=== PATIENT | male | born 1995 | race Caucasian/White ===

== ENCOUNTER 2021-03-14 21:55 | Emergency (ER) | payer SELFPAY ==
[~2021-03-14] VITALS: Ht 178 cm; Wt 108.9 kg
[~2021-03-14 21:55] MED LIST: OXYC1TAB87 PO
[2021-03-14 22:09] VITALS: BP 140/97
--- NOTE | 2021-03-14 22:49 | ED General ---
General Chief Complaint: General Problems/Pain Stated Complaint: BODY ACHES/DIARRHEA Nursing Triage Note: PT AMB TO RM 8 W REPORTS OF DIARRHEA AND BODY ACHES SX YESTERDAY. PT A&OX4. Source of Information: Patient Exam Limitations: No Limitations History of Present Illness Date Seen by Provider: Mar 14, 2021 Time Seen by Provider: 22:14 Initial Comments This 26-year-old young man presents to the emergency room with primary complaint of watery diarrhea yesterday and today. Yesterday he had some aches and some abdominal cramping. He denies any pain today. No fever, hematochezia, or respiratory symptoms. He denies any exposure to possible infectious sources such as dirty water, contaminated food, diapers, reptiles, or agricultural animals. He has not taken any medications for the diarrhea yet. He has been pushing clear liquids and thinks he has stayed well-hydrated. Allergies and Home Medications Allergies Uncoded Allergies: GRAPE JUICE 100% (Allergy, Mild, 08/01/15) Patient Home Medication List Home Medication List Reviewed: Yes Oxycodone HCl/Acetaminophen (Percocet 5-325 mg Tablet) 1 Each Tablet, 1-2 EACH PO Q6H PRN for PAIN Prescribed by: RU VALENCIA on 08/01/15 7903 Review of Systems Review of Systems Constitutional: no symptoms reported EENTM: no symptoms reported Respiratory: no symptoms reported Cardiovascular: no symptoms reported Gastrointestinal: see HPI Genitourinary: no symptoms reported Musculoskeletal: see HPI Skin: no symptoms reported Psychiatric/Neurological: No Symptoms Reported Hematologic/Lymphatic: No Symptoms Reported Immunological/Allergic: no symptoms reported Past Rgoctws-Ibzwgs-Xivjjq Hx Patient Social History Tobacco Use?: No Use of E-Cig and/or Vaping dev: No Substance use?: No Alcohol Use?: No Immunizations Up To Date Influenza Vaccine Up-to-Date: No; Not Current First/Initial COVID19 Vaccinat: NONE Second COVID19 Vaccination Maxx: NONE Third COVID19 Vaccination Date: NONE 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 oz. 79.770160lk; 34.00 BMI Method: General Appearance: No Apparent Distress, WD/WN HEENT: PERRL/EOMI, Normal ENT Inspection, Pharynx Normal, Other (Mucous membranes moist) Neck: Normal Inspection Respiratory: Lungs Clear, Normal Breath Sounds, No Accessory Muscle Use Cardiovascular: Regular Rate, Rhythm, No Edema, No Murmur Gastrointestinal: Normal Bowel Sounds, Non Tender, Soft; No Distended Extremity: Normal Inspection, No Pedal Edema Neurologic/Psychiatric: Alert, Oriented x3, No Motor/Sensory Deficits, Normal Mood/Affect Skin: Normal Color, Warm/Dry Progress/Results/Core Measures Suspected Sepsis SIRS Temperature: Pulse: 93 Respiratory Rate: 20 Blood Pressure 140 /97 Mean: 111 Results/Orders Lab Results Laboratory Tests Test 03/14/21 22:12 Range/Units Influenza Type A (RT-PCR) Not Detected Not Detecte Influenza Type B (RT-PCR) Not Detected Not Detecte SARS-CoV-2 RNA (RT-PCR) Not Detected Not Detecte My Orders Orders - RAMU MORALES MD Influenza A And B By Pcr (03/14/21 22:32) Loperamide Tablet (Imodium Tablet) (03/14/21 23:00) Medications Given in ED Current Medications Medications Dose Ordered Sig/Lc Route Start Time Stop Time Status Last Admin Dose Admin Loperamide HCl 4 mg ONCE ONCE PO 03/14/21 23:00 03/14/21 22:58 DC 03/14/21 22:54 4 MG Vital Signs/I&O 03/14/21 22:09 Temp 36.5 Pulse 93 Resp 20 B/P (MAP) 140/97 (111) Pulse Ox 99 O2 Delivery Room Air Capillary Refill : Less Than 3 Seconds Blood Pressure Mean: 111 Progress Note : Progress Note Imodium given for the diarrhea. Vital signs were stable. Discharge instructions reviewed. Covid and influenza screens were negative. Departure Impression Primary Impression: Diarrhea Qualified Codes: R19.7 - Diarrhea, unspecified Disposition: 01 HOME, SELF-CARE Condition: Stable Departure-Patient Inst. Decision time for Depature: 22:48 Referrals: NO,LOCAL PHYSICIAN (PCP/Family) Primary Care Physician Patient Instructions: Diarrhea, Adult ED Add. Discharge Instructions: Continue to drink plenty of clear liquids such as water, Gatorade, etc. Avoid dairy products or fatty or greasy foods for at least 48 hours after your diarrhea resolves. You may take Imodium or generic antidiarrheal [id number]-mtbiaos. Please follow package instructions. Call with questions or concerns. Return to the ER if you have worsening symptoms or develop new symptoms such as escalating pain, fever, blood in your stools, etc. All discharge instructions reviewed with patient and/or family. Voiced understanding. Work/School Note: Work Release Form Date Seen in the Emergency Department: Mar 14, 2021 Return to Work: Mar 16, 2021 Restrictions: Return-No Fever (24hrs), Return-No Vomiting(24hrs) RAMU MORALES MD Mar 14, 2021 22:49
[2021-03-14] MEDS ORDERED: LOPERAMIDE 2 MG (IMODIUM) TABLET PO ONE (23:00)
== END 2021-03-14 22:56 | disposition home or self-care (01) ==
LOC: EDUNIT# 21:55 → ER 21:56
DX: R19.7 Diarrhea, unspecified (principal); Z20.822 Contact with and (suspected) exposure to COVID-19
CPT/HCPCS: 87636; 99283

== ENCOUNTER 2022-03-04 19:34 | Emergency (ER) | payer SELFPAY ==
[~2022-03-04] VITALS: Ht 180 cm; Wt 108.9 kg
[2022-03-04 19:43] VITALS: BP 137/87
[2022-03-04] MEDS ORDERED: OSLT75C PO (19:53)
--- NOTE | 2022-03-04 19:53 | ED General ---
General Chief Complaint: Cough/Cold/Flu Symptoms Stated Complaint: FEVER Nursing Triage Note: fever, cough x1 day. daughter + for flu a Source of Information: Patient Exam Limitations: No Limitations (OBINNA ANN APRN) History of Present Illness Date Seen by Provider: Mar 04, 2022 Time Seen by Provider: 19:45 Initial Comments Patient is a 27-year-old male who presents to the emergency department for evaluation of cough and fever that began late yesterday. Patient's daughter was recently diagnosed with flu a. Patient denies any chest pain or significant shortness of air. States the cough is nonproductive. (OBINNA ANN APRN) Allergies and Home Medications Allergies Uncoded Allergies: GRAPE JUICE 100% (Allergy, Mild, 08/01/15) Patient Home Medication List Home Medication List Reviewed: Yes (OBINNA ANN APRN) Oseltamivir Phosphate (Tamiflu) 75 Mg Cap, 75 MG PO BID Prescribed by: Obinna Ann on 03/04/221952 Discontinued Medications Oxycodone HCl/Acetaminophen (Percocet 5-325 mg Tablet) 1 Each Tablet, 1-2 EACH PO Q6H PRN for PAIN Discontinued Reason: No Longer Taking Prescribed by: RU VALENCIA on 08/01/15 184 Last Action: Discontinued Review of Systems Review of Systems Constitutional: no symptoms reported EENTM: no symptoms reported Respiratory: no symptoms reported Cardiovascular: no symptoms reported Gastrointestinal: no symptoms reported Genitourinary: no symptoms reported Musculoskeletal: no symptoms reported Skin: no symptoms reported Psychiatric/Neurological: No Symptoms Reported Hematologic/Lymphatic: No Symptoms Reported (OBINNA ANN APRN) Past Kdxmsyj-Jtdjba-Wolylj Hx Patient Social History Tobacco Use?: No Substance use?: No Alcohol Use?: No Pt feels they are or have been: No (OBINNA ANN APRN) Immunizations Up To Date First/Initial COVID19 Vaccinat: NONE Second COVID19 Vaccination Amxx: NONE Third COVID19 Vaccination Date: NONE (OBINNA ANN APRN) Past Medical History Surgery/Hospitalization HX: denies Surgeries: No Respiratory: No Cardiac: No Neurological: No Genitourinary: No Gastrointestinal: No Musculoskeletal: No Endocrine: No HEENT: No Cancer: No Psychosocial: No Integumentary: No (OBINNA ANN APRN) Physical Exam Vital Signs Vital Signs - First Documented 03/04/22 19:43 Temp 36.2 Pulse 99 Resp 18 B/P (MAP) 137/87 (104) Pulse Ox 95 O2 Delivery Room Air (RAMU MORALES MD) Vital Signs Capillary Refill : Less Than 3 Seconds (OBINNA ANN APRN) Height, Weight, BMI Height: 6'" Weight: 175lbs. oz. 79.319264tj; 33.00 BMI Method: General Appearance: No Apparent Distress, WD/WN HEENT: PERRL/EOMI, TMs Normal, Normal ENT Inspection, Pharynx Normal Neck: Full Range of Motion, Normal Inspection, Non Tender, Supple Respiratory: Chest Non Tender, Lungs Clear, Normal Breath Sounds, No Accessory Muscle Use, No Respiratory Distress Cardiovascular: Regular Rate, Rhythm Gastrointestinal: Non Tender, Soft Back: Normal Inspection, No Vertebral Tenderness Extremity: Non Tender, No Calf Tenderness Neurologic/Psychiatric: Alert, Oriented x3, No Motor/Sensory Deficits, Normal Mood/Affect Skin: Normal Color, Warm/Dry (OBINNA ANN APRN) Progress/Results/Core Measures Suspected Sepsis SIRS Temperature: Pulse: 99 Respiratory Rate: 18 Blood Pressure 137 /87 Mean: 104 (OBINNA ANN APRN) Results/Orders Vital Signs/I&O 03/04/22 19:43 Temp 36.2 Pulse 99 Resp 18 B/P (MAP) 137/87 (104) Pulse Ox 95 O2 Delivery Room Air (RAMU MORALES MD) Vital Signs/I&O Capillary Refill : Less Than 3 Seconds (OBINNA ANN APRN) Blood Pressure Mean: 104 Progress Note : Progress Note Patient is nontoxic and well-hydrated on exam. No adventitious lung sounds or increased work of breathing noted. Vital signs are reassuring. I offered a influenza test to the patient but I stated with a known flu a positive patient in the household that he very likely has flu. Also discussed the relatively decrease sensitivity of flu tests given a 20 to 50% false-negative rate. He declined the flu testing. I stated I would give him a prescription of Tamiflu if he wished. He stated he did wish for the prescription. I went over potential benefits of the Tamiflu as well as common side effects. He verbalized understanding. Follow-up with PCP. Return precautions for urgent symptomology discussed. Patient verbalized understanding. (OBINNA ANN APRN) Departure Impression Primary Impression: Influenza Disposition: 01 HOME, SELF-CARE Condition: Stable Departure-Patient Inst. Decision time for Depature: 19:50 (OBINNA ANN APRN) Referrals: NO,LOCAL PHYSICIAN (PCP/Family) Primary Care Physician Patient Instructions: Flu, Adult ED Scripts Oseltamivir Phosphate (Tamiflu) 75 Mg Cap 75 MG PO BID for 5 Days, #10 CAP 0 Refills Prov: OBINNA ANN APRN 03/04/22 Work/School Note: Work Release Form Date Seen in the Emergency Department: Mar 04, 2022 Return to Work: Mar 10, 2022 Restrictions: Return-No Fever (24hrs) ATTENDING PHYSICIAN NOTE: I was physically present as attending physician in the emergency department during the care of this patient, but I was not directly involved in the decision making or delivery of care for this patient. (RAMU MORALES MD) OBINNA ANN APRN Mar 04, 2022 19:53 RAMU MORALES MD Mar 06, 2022 02:35
== END 2022-03-04 20:10 | disposition home or self-care (01) ==
LOC: EDUNIT# 19:34 → ER 19:36
DX: J11.1 Influenza due to unidentified influenza virus with other respiratory manifestations (principal); Z28.310 Unvaccinated for COVID-19
CPT/HCPCS: 99282